=== PATIENT | female | born 1950 | race Caucasian/White ===

== ENCOUNTER 2021-06-19 12:12 | Inpatient (IN) | payer MEDICARE ==
[~2021-06-19] VITALS: Ht 3139 cm; Wt 46.7 kg
[2021-06-19] MEDS ORDERED: AMLODIPINE BES2.5 MG PO (13:48)
[2021-06-19] MEDS ORDERED: COLACE100 MG PO (13:50)
[2021-06-19] MEDS ORDERED: FERROUS GLUCON324 MG PO (13:52)
[2021-06-19] MEDS ORDERED: LOVENOX30 MG/0.3 SC (13:53)
[2021-06-19] MEDS ORDERED: NU-MAG71.5 MG PO (13:55)
[2021-06-19] MEDS ORDERED: MECLIZINE HYD12.5 MG PO (14:03)
[2021-06-19] MEDS ORDERED: MIDODRINE HCL5 M1 PO (14:05)
[2021-06-19] MEDS ORDERED: PANTOPRAZOLE SO40 MG PO (14:06)
[2021-06-19] MEDS ORDERED: POTASSIUM20 MEQ/16 PO (14:08)
[2021-06-19] MEDS ORDERED: MILLIPRED5 MG PO (14:15)
[2021-06-19] MEDS ORDERED: CARAFATE1 G1 PO (14:15)
[2021-06-19 20:00] VITALS: BP 132/64
[2021-06-20 05:57] LABS: ALKALINE PHOSPHATASE 89 U/L (45-117); BUN 11 mg/dl (7-24); CHLORIDE 116 mmol/L (98-107); CHOLESTEROL 117 mg/dL (<200); CREATININE 0.89 mg/dL (0.55-1.02); LDL CHOLESTEROL 39 mg/dL (9-159); POTASSIUM 3.1 mmol/L (3.5-5.1); SGOT/AST 35 IU/L (3-35); SGPT/ALT 14 U/L (12-78); SODIUM 145 mmol/L (136-145); TOTAL PROTEIN 5.3 gm/dL (6.4-8.2); TRIGLYCERIDES 222 mg/dl (<150)
[2021-06-20 06:16] LABS: BASO % 0.9 % (0.0-1.0); EOS # 0.1 10*3/uL (0.0-0.4); EOS % 3.3 % (1.0-4.0); HEMATOCRIT 22.9 % (37.0-47.0); LYMPH # 1.4 10*3/uL (1.3-4.4); LYMPH % 31.4 % (27.0-41.0); MEAN CELL VOLUME 93.1 fl (81.0-99.0); MEAN CORPUSCULAR HGB 28.9 pg (27.0-31.0); MEAN PLATELET VOLUME 9.9 fl (9.6-12.3); MONO # 0.3 10*3/uL (0.1-1.0); MONO % 7.9 % (3.0-9.0); NEUT # 2.4 10*3/uL (2.3-7.9); NEUT % 55.8 % (47.0-73.0); PLATELET COUNT AUTOMATED 405 10*3/uL (130-400); RED BLOOD COUNT 2.46 10*6/uL (4.10-5.10); RED CELL DISTRI WIDTH 18.4 % (0-14.5); WHITE BLOOD COUNT 4.3 10*3/uL (4.8-10.8)
[2021-06-20 07:08] LABS: VITAMIN D, 25-HYDROXY 31.7 ng/mL (30-100)
[2021-06-20 08:00] VITALS: BP 128/67
[2021-06-20] MEDS ORDERED: ONDANSETRON HYDR4 M1 PO (10:04)
[2021-06-20] MEDS ORDERED: PROAIR HFA8.5 GM INH (10:06)
[2021-06-20 17:45] LABS: BILIRUBIN Negative (Negative); BLOOD Negative (Negative); CLARITY Clear (Clear); COLOR Yellow (Yellow); GLUCOSE Negative (Negative); KETONE Negative (Negative); LEUKO ESTERASE 2+ (Negative); NITRITE Negative (Negative); PH 5.5 (4.5-8.0); SPECIFIC GRAVITY 1.015 (1.001-1.030); UROBILINOGEN 0.2 E.U./dl (0.0-1.0)
[2021-06-20 19:58] LABS: BACTERIA 2+
[2021-06-20 20:00] VITALS: BP 102/51
[2021-06-21 07:00] LABS: HEMATOCRIT 21.4 % (37.0-47.0); MEAN CORPUSCULAR HGB 29.1 pg (27.0-31.0); MEAN CORPUSCULAR HGB CONC 31.3 g/dl (33.0-37.0); MEAN PLATELET VOLUME 9.7 fl (9.6-12.3); PLATELET COUNT AUTOMATED 335 10*3/uL (130-400); RED CELL DISTRI WIDTH 18.4 % (0-14.5); WHITE BLOOD COUNT 3.8 10*3/uL (4.8-10.8)
[2021-06-21 07:06] LABS: MANUAL DIFF REFLEX YES
[2021-06-21 07:15] LABS: BUN 8 mg/dl (7-24); CHLORIDE 116 mmol/L (98-107); CREATININE 0.79 mg/dL (0.55-1.02); POTASSIUM 3.3 mmol/L (3.5-5.1); SODIUM 143 mmol/L (136-145)
[2021-06-21 07:28] LABS: PLATELET SUFFICIENCY NORMAL (NORMAL); TOTAL CELLS COUNTED 100 #CELLS
[2021-06-21 07:29] LABS: OVALOCYTES FEW; POLYCHROMASIA SLIGHT
[2021-06-21] MEDS ORDERED: RISPERDAL0.5 MG PO (08:03)
[2021-06-21] MEDS ORDERED: REMERON15 M2 PO (08:04)
[2021-06-21 08:05] VITALS: BP 140/66
== END 2021-06-21 08:56 | disposition short-term general hospital (02) | DRG 885 ==
LOC: 3N 12:12
PROVIDERS: Internal Medicine; ADMIT Psychiatry & Neurology Psychiatry; ATTEND Psychiatry & Neurology Psychiatry
DX: F23 Brief psychotic disorder (principal); M79.7 Fibromyalgia; F43.20 Adjustment disorder, unspecified; R41.0 Disorientation, unspecified; F32.A Depression, unspecified; M41.9 Scoliosis, unspecified; Z20.822 Contact with and (suspected) exposure to COVID-19; Z90.49 Acquired absence of other specified parts of digestive tract; Z90.710 Acquired absence of both cervix and uterus; D64.9 Anemia, unspecified